=== PATIENT | male | born 1965 | race Caucasian/White ===

== ENCOUNTER 2016-04-26 20:53 | Emergency (ER) | payer MEDICARE, BC ==
[2016-04-26] MEDS ORDERED: Fentanyl 100 MCG/2 ML VIAL ONE (20:59)
[2016-04-26 21:20] LABS: #Basophils 0.1 thou/uL (0.0-0.2); #Eosinphils 0.1 thou/uL (0.0-0.7); #Lymphocytes 2.4 thou/uL (1.20-3.40); #Monocytes 0.8 thou/uL (0.11-0.59); #Neutrophils 6.1 thou/uL (1.40-6.50); %Eosinophils 1.4 % (0.0-10.0); %Monocytes 8.3 % (0.0-10.0); Hematocrit 43.3 % (42.0-52.0); Mean Platelet Volume 5.6 fL (7.4-10.4); Red Blood Cell (RBC) Count 4.78 mill/uL (4.70-6.10); White Blood Cell (WBC) Count 9.5 thou/uL (4.8-10.8)
[2016-04-26 21:27] LABS: ALT (SGPT) 15 U/L (0-55); AST (SGOT) 15 U/L (5-34); Alkaline Phosphatase 80 U/L (40-150); Anion Gap 16 mmol/L (10-20); BUN (Urea Nitrogen) 18 mg/dL (8.4-25.7); Bilirubin, Total 0.4 mg/dL (0.2-1.2); Calc. Creatinine Clearance 0 mL/min (70-130); Calcium 8.9 mg/dL (7.8-10.44); Carbon Dioxide 24 mmol/L (22-29); Chloride 106 mmol/L (98-107); Estimated GFR-MDRD 77; Protein, Total 7.5 g/dL (6.0-8.3)
[2016-04-26] MEDS ORDERED: Piperacillin/Tazobactam 3.375 GM VIAL ONE (22:05)
[2016-04-26] MEDS ORDERED: Sodium Chloride 0.9% 100 ML ONE (22:05)
--- NOTE | 2016-04-26 22:32 | RAD ---
RIGHT HAND THREE VIEWS 04/26/16 Comparison is made with the prior study of 08/17/13 done at [facility]. There is an acute fr acture of the distal phalanx of the index finger which is partially comminuted. The distal fragments are displaced towards the volar aspect of the hand quite significantly. 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 This is not changed in appearance over time. An old fifth metacarpal fracture was seen. The carpal bones all appear intact . IMPRESSION: 1. Acute displaced fracture of the distal phalanx of the index finger with partial comminution. 2. Old traumatic injuries as detailed above. POS: HOME
[2016-04-26] MEDS ORDERED: Lorazepam 2 MG/ML VIAL ONE (22:45)
== END 2016-04-26 23:32 | disposition home or self-care (01) ==
LOC: BURERS 20:53
DX: S62.630B Displaced fracture of distal phalanx of right index finger, initial encounter for open fracture (principal); S60.414A Abrasion of right ring finger, initial encounter; S60.412A Abrasion of right middle finger, initial encounter; I10 Essential (primary) hypertension; I25.2 Old myocardial infarction; F17.210 Nicotine dependence, cigarettes, uncomplicated; X58.XXXA Exposure to other specified factors, initial encounter
CPT/HCPCS: 12002; 26755; 26770; 80053; 85025; 96365; 96375; 96376; J2060; J2543; J3010; J7050; Q4049

== ENCOUNTER 2017-04-03 01:34 | Emergency (ER) | payer BC, MEDICARE ==
[2017-04-03 02:07] LABS: ALT (SGPT) 16 U/L (8-55); AST (SGOT) 14 U/L (5-34); Albumin 4.3 g/dL (3.5-5.0); Alkaline Phosphatase 88 U/L (40-150); Anion Gap 18 mmol/L (10-20); BUN (Urea Nitrogen) 20 mg/dL (8.4-25.7); Bilirubin, Total Less than 0.2 mg/dL (0.2-1.2); Calc. Creatinine Clearance 0 mL/min (70-130); Calcium 9.3 mg/dL (7.8-10.44); Carbon Dioxide 27 mmol/L (22-29); Chloride 103 mmol/L (98-107); Estimated GFR-MDRD 61; Globulin 3.3 g/dL (2.4-3.5); Glucose 140 mg/dL (70-105); Lipase 24 U/L (8-78); Potassium 3.8 mmol/L (3.5-5.1); Protein, Total 7.6 g/dL (6.0-8.3); Sodium 144 mmol/L (136-145)
[2017-04-03 02:08] LABS: CKMB 3.4 ng/mL (0-6.6); Troponin I Less than 0.010 ng/mL (< 0.028)
[2017-04-03] MEDS ORDERED: Enoxaparin Sodium 100 MG/ML SYRINGE SC SCH (02:15)
[2017-04-03 02:19] LABS: #Basophils 0.1 thou/uL (0.0-0.2); #Eosinphils 0.2 thou/uL (0.0-0.7); #Lymphocytes 2.7 thou/uL (1.20-3.40); #Monocytes 0.7 thou/uL (0.11-0.59); #Neutrophils 7.1 thou/uL (1.40-6.50); %Basophils 0.6 % (0.0-1.0); %Eosinophils 1.9 % (0.0-10.0); %Lymphocytes 25.3 % (21.0-51.0); %Monocytes 6.6 % (0.0-10.0); %Neutrophils 65.6 % (42.0-75.0); Band 4 % (5-11); Eosinophils 3 % (0-10); Hemoglobin 13.6 g/dL (14.0-18.0); Lymphocytes 23 % (21-51); MDiff Complete? YES; Mean Corpuscular HGB CONC 33.6 g/dL (32.0-36.0); Mean Corpuscular Hemoglobin 29.3 pg (27.0-31.0); Mean Corpuscular Volume 87.2 fl (80.0-94.0); Mean Platelet Volume 5.2 fL (7.4-10.4); Monocytes 7 % (0-10); Neutrophil 63 % (42-75); PLT Morphology Comment Appears Adequate; Platelet Count 398 thou/uL (130-400); RBC Distribution Width 12.5 % (11.5-14.5); RBC Morphology Normal; Red Blood Cell (RBC) Count 4.64 mill/uL (4.70-6.10); Small Platelets SLIGHT; White Blood Cell (WBC) Count 10.7 thou/uL (4.8-10.8)
--- NOTE | 2017-04-03 07:37 | RAD ---
PORTABLE CHEST: DATE: 04/03/17. FINDINGS: An AP portable film at 0128 is compared with the 07/21/16 study. The heart is normal in size and the lungs are clear. No infiltrate or effusion was seen. There is n o vascular congestion or edema. The trachea is midline. IMPRESSION: No acute thoracic finding. POS: HOME
== END 2017-04-03 02:50 | disposition short-term general hospital (02) ==
LOC: BURERS 01:34
DX: I20.0 Unstable angina (principal); I10 Essential (primary) hypertension; I25.2 Old myocardial infarction; F17.210 Nicotine dependence, cigarettes, uncomplicated
CPT/HCPCS: 71045; 80053; 82553; 83690; 84484; 85025; 93005; 94760; 96361; 96372; 96374; 96375; J1650; J2270